=== PATIENT | female | born 1985 | race Caucasian/White ===

== ENCOUNTER → 2024-01-07 | Day surgery (SDC) | payer MEDICAID ==
[~2024-01-07] VITALS: Ht 147.3 cm; Wt 69.4 kg
[~2024-01-07] MED LIST: ATROPINE SULFATE 1MG/ML VIAL IV PRN; BUPIVACAINE HCL/PF 0.5% (5MG/ML) 10ML ONE; ETOMIDATE 2MG/ML 10ML VIAL IV ONE; FENTANYL CITRATE/PF 50MCG/ML 2ML VIAL ONE; GLYCOPYRROLATE 0.2 MG/ML 2ML VIAL ONE; HYDRALAZINE 20MG/ML VIAL IV PRN; HYDROMORPHONE HCL/PF 1MG/ML INJ IV PRN; HYDROMORPHONE HCL/PF 1MG/ML INJ ONE; LABETALOL 5MG/ML 4ML INJ IV PRN; LACTATED RINGERS 1,000 ML IV SCH; NEOSTIGMINE METHYLSULFATE 1MG/ML 10 ML VIAL ONE; OMEP20TA23 PO; ONDANSETRON HCL 4MG/2ML INJ IV PRN; ROCURONIUM BROMIDE 10MG/ML VIAL 5ML IV ONE; SERT50TA PO; SKIN ADHESIVE 0.7 GM EA TOP ONE; SUCCINYLCHOLINE CHLORIDE 200MG/10ML IV ONE; SUGAMMADEX SODIUM 200MG/2ML VIAL IV ONE; TERB250T88 PO
[2024-01-07 06:54] LABS: UCG KIT LOT# 840181; UCG SCREEN NEGATIVE
[2024-01-07] MEDS: LACTATED RINGERS 1,000 ML IV SCH (07:24)
== END | disposition home or self-care (01) ==
LOC: OR 06:05
PROVIDERS: ATTEND Surgery
DX: K80.10 Calculus of gallbladder with chronic cholecystitis without obstruction (principal); E78.00 Pure hypercholesterolemia, unspecified; F41.9 Anxiety disorder, unspecified; Z79.899 Other long term (current) drug therapy; Z98.890 Other specified postprocedural states
CPT/HCPCS: 47562; 81025; 88304; J3010; J3490 ×4; J0330; J1170; J7030; J2710